=== PATIENT | male | born 1980 | race Caucasian/White ===

== ENCOUNTER 2019-02-17 08:51 | Day surgery (SDC) | payer OTHER ==
[~2019-02-17] VITALS: Ht 190.5 cm; Wt 95.8 kg
[~2019-02-17 08:51] MED LIST: ACYC400 PO; ALBU90OI61 INH; ASCO500 PO; Advil200 M1 PO; BUTALB-ACETAMI1 EAC3 PO; Bactrim Ds Tab1 EACH PO; CALCIUM PO; CARB200 PO; CARBATROL PO; DEXL60CA3; DEXL60CA3 PO; DIPATR PO; Daily Multiple1 EACH PO; ERYT.5TO LEFTEYE; HYDACE5 PO; KETO10 PO; Keflex500 MG PO; LISI20 PO; MULVITMIND PO; Mobic15 MG PO; Motrin400 MG PO; Multiple Vitam1 EAC1; Naprosyn500 MG PO; OMEP20ER PO; OXYACE5T PO; PROC10 PO; PROM25 PO; Percocet 5-3251 EACH PO; RXHYDACE PO; RXOXYACE PO; SULTRIDS PO; Super B Comple150 MG PO; TAMS.4ER PO; VALA500 PO; Zofran Odt4 MG SL
--- NOTE | 2019-02-17 10:05 | NUR ---
02/17/19 Ana5 Mauro Herron 1ST IV ATTEMPT IN RH UNSUCCESSFUL, ORSC.BDK 2ND IV ATTEMPT IN RAC SUCCESSFUL, ORSC.BDK
== END 2019-02-17 11:46 | disposition home or self-care (01) ==
LOC: ORSCSDS 08:51
PROVIDERS: Internal Medicine Gastroenterology
PROC: 0D758ZZ Dilation of Esophagus, Via Natural or Artificial Opening Endoscopic (ICD-10-PCS; principal; 2019-02-17 10:15)
PROC: 0DB58ZX Excision of Esophagus, Via Natural or Artificial Opening Endoscopic, Diagnostic (ICD-10-PCS; principal; 2019-02-17 10:15)
DX: R13.10 Dysphagia, unspecified (principal); K21.0 Gastro-esophageal reflux disease with esophagitis; K22.2 Esophageal obstruction; K44.9 Diaphragmatic hernia without obstruction or gangrene; I10 Essential (primary) hypertension; G40.909 Epilepsy, unspecified, not intractable, without status epilepticus; Z79.899 Other long term (current) drug therapy
CPT/HCPCS: 88305; J2704; J7120

== ENCOUNTER 2020-12-08 19:55 | Emergency (ER) | payer OTHER ==
[~2020-12-08] VITALS: Ht 190.5 cm; Wt 102.5 kg
[2020-12-08 20:45] LABS: BASOPHILS ABSOLUTE AUTO 0.08 K/mm3 (0.00-0.23); BASOPHILS PERCENT AUTO 1 % (0-2); EOSINOPHILS ABSOLUTE AUTO 0.12 K/mm3 (0.00-0.68); EOSINOPHILS PERCENT AUTO 2 % (0-6); Hematocrit 43.8 % (37.0-53.0); IMMATURE GRAN ABSOLUTE AUTO 0.02 K/mm3 (0.00-0.10); IMMATURE GRAN PERCENT AUTO 0 % (0-1); LYMPHOCYTES ABSOLUTE AUTO 3.17 K/mm3 (0.84-5.20); LYMPHOCYTES PERCENT AUTO 48 % (21-46); MONOCYTES ABSOLUTE AUTO 0.55 K/mm3 (0.16-1.47); MONOCYTES PERCENT AUTO 8 % (4-13); Mean Corpuscular HGB 31.7 pg (26.0-34.0); Mean Corpuscular HGB Conc 34.2 g/dL (31.5-36.5); Mean Corpuscular Volume 93 fL (80-100); Mean Platelet Volume 9.6 fL (9.1-12.4); NEUTROPHILS ABSOLUTE AUTO 2.67 K/mm3 (1.96-9.15); NEUTROPHILS PERCENT AUTO 40 % (41-73); Platelet Count 217 K/mm3 (150-400); RDW Coefficient Variation 11.9 % (11.7-14.2); RDW Standard Deviation 40.3 fL (35.1-46.3); Red Blood Cell Count 4.73 M/mm3 (4.30-5.90); White Blood Cell Count 6.61 K/mm3 (4.00-11.30)
[2020-12-08 21:00] LABS: Alanine Aminotransfer (ALT/SGP 90 U/L (12-78); Albumin, Blood 3.7 g/dL (3.4-5.0); Alk Phos 174 U/L (50-136); Anion Gap 5 mmol/L (6-16); Aspartate Aminotrans (AST/SGOT 49 U/L (12-37); Bilirubin, Total 0.3 mg/dL (0.1-1.0); Blood Urea Nitrogen 12 mg/dL (8-24); Bun/Creatinine Ratio 13.1 (12.0-20.0); CO2, Blood 27 mmol/L (21-32); Calcium, Blood 8.5 mg/dL (8.5-10.1); Chloride, Blood 106 mmol/L (98-108); Creatinine, Blood 0.91 mg/dL (0.60-1.20); Globulin, Blood 3.8 g/dL (2.2-4.0); Glomerular Filtration Rate >60 (60-); Glucose, Blood 132 mg/dL (70-99); Potassium, Blood 3.9 mmol/L (3.5-5.5); Sodium, Blood 138 mmol/L (136-145); Total Protein, Blood 7.5 g/dL (6.4-8.2)
[2020-12-08 22:14] LABS: Troponin I <0.015 ng/mL (0.000-0.040)
[2020-12-09] MEDS ORDERED: Pepcid20 MG PO (00:03)
[2020-12-09] MEDS ORDERED: ACETAMINOPHEN500 MG PO (00:03)
== END 2020-12-09 00:18 | disposition home or self-care (01) ==
LOC: ER 19:55
PROVIDERS: Physician Assistant
DX: R10.13 Epigastric pain (principal); I10 Essential (primary) hypertension; Z91.010 Allergy to peanuts; Z88.8 Allergy status to other drugs, medicaments and biological substances; Z79.899 Other long term (current) drug therapy; Z87.442 Personal history of urinary calculi
CPT/HCPCS: 36415; 76705; 80053; 83690; 84484; 85025; 93005; 93010; 96374; 99284-25; A9270

== ENCOUNTER 2021-11-24 12:05 | Emergency (ER) | payer OTHER ==
[~2021-11-24] VITALS: Ht 190.5 cm; Wt 59.0 kg
[~2021-11-24 12:05] MED LIST changes: +ACETAMINOPHEN500 MG PO; +Pepcid20 MG PO
[2021-11-24 12:43] LABS: BASOPHILS ABSOLUTE AUTO 0.06 K/mm3 (0.00-0.23); BASOPHILS PERCENT AUTO 1 % (0-2); EOSINOPHILS ABSOLUTE AUTO 0.37 K/mm3 (0.00-0.68); EOSINOPHILS PERCENT AUTO 4 % (0-6); Hematocrit 44.5 % (37.0-53.0); Hemoglobin 15.4 g/dL (13.5-17.5); IMMATURE GRAN ABSOLUTE AUTO 0.02 K/mm3 (0.00-0.10); IMMATURE GRAN PERCENT AUTO 0 % (0-1); LYMPHOCYTES ABSOLUTE AUTO 4.24 K/mm3 (0.84-5.20); LYMPHOCYTES PERCENT AUTO 47 % (21-46); MONOCYTES ABSOLUTE AUTO 0.68 K/mm3 (0.16-1.47); MONOCYTES PERCENT AUTO 8 % (4-13); Mean Corpuscular HGB 32.6 pg (26.0-34.0); Mean Corpuscular HGB Conc 34.6 g/dL (31.5-36.5); Mean Corpuscular Volume 94 fL (80-100); Mean Platelet Volume 9.1 fL (9.1-12.4); NEUTROPHILS ABSOLUTE AUTO 3.66 K/mm3 (1.96-9.15); NEUTROPHILS PERCENT AUTO 41 % (41-73); Platelet Count 310 K/mm3 (150-400); RDW Coefficient Variation 11.7 % (11.7-14.2); Red Blood Cell Count 4.73 M/mm3 (4.30-5.90); White Blood Cell Count 9.03 K/mm3 (4.00-11.30)
[2021-11-24 13:03] LABS: Albumin/Globulin Ratio 1.1 (0.8-1.8); Bilirubin, Total 0.2 mg/dL (0.1-1.0); Bun/Creatinine Ratio 14.8 (12.0-20.0); Creatinine, Blood 0.94 mg/dL (0.60-1.20); Globulin, Blood 3.6 g/dL (2.2-4.0); Potassium, Blood 3.4 mmol/L (3.5-5.5); Total Protein, Blood 7.6 g/dL (6.4-8.2)
[2021-11-24] MEDS ORDERED: OXYC5 PO (13:55)
[2021-11-24 13:56] LABS: Source, Urine Clean Catch
[2021-11-24 14:00] LABS: Appearance, Urine Clear (Clear); Bilirubin, Urine Neg (Neg); Blood, Urine 4+ (Neg); Color, Urine Amber (P-Yellow); Glucose Qualitative, Urine Neg (Neg); Ketones, Urine Neg (Neg); Leukocyte Esterase, Urine Neg (Neg); Nitrite, Urine Neg (Neg); Protein, Urine 1+ (Neg); Specific Gravity, Urine 1.025 (1.003-1.022); Urobilinogen, Urine NORM (Normal)
[2021-11-24 14:10] LABS: Bacteria Few /hpf; Mucus Mod (0-Heavy); Squamous Epithelial Cells Few /hpf (Few)
== END 2021-11-24 14:42 | disposition home or self-care (01) ==
LOC: ER 12:05
PROVIDERS: Physician Assistant
DX: N13.2 Hydronephrosis with renal and ureteral calculous obstruction (principal); Z79.899 Other long term (current) drug therapy
CPT/HCPCS: 36415; 74176; 80053; 81001; 83690; 85025; J1170; J1885; J2405; J7030

== ENCOUNTER → 2023-05-11 | Outpatient (CLI) | payer OTHER ==
[~2023-05-11] MED LIST changes: +OXYC5 PO
[2023-05-11 19:20] LABS: Adenovirus F 40/41 Not Detected (NOT DETECT); Astrovirus Not Detected (NOT DETECT); Campylobacter Sp Not Detected (NOT DETECT); Cryptosporidium Not Detected (NOT DETECT); Cyclospora Cayetanensis Not Detected (NOT DETECT); E. Coli O157 Not Detected (NOT DETECT); Entamoeba Histolytica Not Detected (NOT DETECT); Enteroaggregative E. coli-EAEC Not Detected (NOT DETECT); Enteropathogenic E. coli-EPEC Not Detected (NOT DETECT); Enterotoxigenic E. coli-ETEC Not Detected (NOT DETECT); Giardia Lamblia Not Detected (NOT DETECT); Norovirus GI/GII Not Detected (NOT DETECT); Plesiomonas Shigelloides Not Detected (NOT DETECT); Rotavirus A Not Detected (NOT DETECT); Salmonella Sp Not Detected (NOT DETECT); Sapovirus Not Detected (NOT DETECT); Shiga Toxin-prod E. coli-STEC Not Detected (NOT DETECT); Shigella/Enteroin E. coli-EIEC Not Detected (NOT DETECT); Vibrio Cholerae Not Detected (NOT DETECT); Vibrio Sp Not Detected (NOT DETECT); Yersinia Enterocolitica Not Detected (NOT DETECT)
[2023-05-12 11:37] LABS: Stool Occult Bld Immuno 1 Negative (NEGATIVE)
== END ==
LOC: LAB 13:25 → LAB SHORT 13:25
PROVIDERS: Family Medicine
DX: K52.9 Noninfective gastroenteritis and colitis, unspecified (principal); K21.9 Gastro-esophageal reflux disease without esophagitis; R10.13 Epigastric pain
CPT/HCPCS: 87338; 87507; G0328

== ENCOUNTER 2024-02-02 03:27 | Day surgery (SDC) | payer OTHER ==
[2024-02-02] MEDS ORDERED: Cosyntropin 0.25 MG / ML 1ML Vial IV SCH (06:00)
[2024-02-02 08:28] VITALS: BP 133/85
== END 2024-02-02 09:31 | disposition home or self-care (01) ==
LOC: ATC 03:27
DX: R42 Dizziness and giddiness (principal); G40.909 Epilepsy, unspecified, not intractable, without status epilepticus
CPT/HCPCS: 80400; 82533; 96374; J0834

== ENCOUNTER 2024-03-02 07:53 | Day surgery (SDC) | payer OTHER | END 2024-03-02 23:13 | disposition home or self-care (01) | LOC: CT 07:53 | DX: R07.89 Other chest pain (principal); R42 Dizziness and giddiness; R06.02 Shortness of breath; R00.2 Palpitations; R00.0 Tachycardia, unspecified; Z91.010 Allergy to peanuts | CPT/HCPCS: 75574; Q9967 ==